=== PATIENT | male | born 1995 | race Caucasian/White ===

== ENCOUNTER 2016-05-20 11:15 | Emergency (ER) | payer OTHER | END 2016-05-20 11:55 | disposition home or self-care (01) | LOC: ER1 11:15 | DX: K40.90 Unilateral inguinal hernia, without obstruction or gangrene, not specified as recurrent (principal) | CPT/HCPCS: 99283 ==

== ENCOUNTER 2016-06-18 08:59 | Emergency (ER) | payer SELFPAY ==
[2016-06-18 09:56] LABS: HEMOGLOBIN 14.7 gm/dl (14.0-17.5); RED BLOOD COUNT 4.61 M/UL (4.20-5.50); WHITE BLOOD COUNT 7.2 K/UL (4.5-11.0)
[2016-06-18 10:21] LABS: BUN/CREATININE RATIO 14 (0-10)
== END 2016-06-18 13:10 | disposition home or self-care (01) ==
LOC: ER1 08:59
PROVIDERS: Emergency Medicine
DX: G89.18 Other acute postprocedural pain (principal); R10.30 Lower abdominal pain, unspecified
CPT/HCPCS: 80053; 81001; 85025; 96372; 99284; J2270; J2405